=== PATIENT | male | born 1970 | race Caucasian/White ===

== ENCOUNTER → 2021-03-10 | Day surgery (SDC) | payer OTHER ==
[~2021-03-10] VITALS: Ht 170.2 cm; Wt 63.5 kg
[~2021-03-10] MED LIST: BUSPIRONE HCL10 MG PO; NEURONTIN300 MG PO; NORCO 5-325 TA1 EACH PO; ONDANSETRON ODT8 MG PO; PERCOCET 5-3251 EACH PO; TIZANIDINE HCL2 MG PO; TRAZODONE 100M100 MG PO; VOLTAREN **OUT50 MG PO; XARELTO10 MG PO
[2021-03-10 09:08] LABS: HCT 41.3 % (42.0-52.0); HGB 14.1 g/dl (13.2-18.0); MCH 30.1 pg (25.0-31.0); MCHC 34.1 g/dL (32.0-36.0); MCV 88.2 fL (78.0-100.0); MPV 9.9 fL (6.0-9.5); RBC 4.68 M/uL (4.70-6.00); WBC 9.3 K/uL (4.0-10.5)
[2021-03-10 09:22] LABS: ALBUMIN 3.6 g/dL (3.4-5.0); BILIRUBIN - TOTAL 0.3 mg/dL (0.2-1.0); BUN/CREAT RATIO (CALC) 16.5 RATIO; CREATININE 0.97 mg/dL (0.67-1.17); GLOBULIN (CALCULATION) 3.2 g/dL; POTASSIUM 4.1 mmol/L (3.5-5.1); TOTAL PROTEIN 6.8 g/dL (6.4-8.2)
--- NOTE | 2021-03-10 15:04 | NUR ---
[id number] PATIENT UNABLE TO VOID, VERBAL ORDER PER DR. MENDOZA FOR FLOMAX RECEIVED.
--- NOTE | 2021-03-10 15:05 | NUR ---
1445 [address] MENDOZA THAT PATIENT IS ANXIOUS TO GO HOME. STATES HE NEEDS NEEDS A CIGARETE. HAS NOT VOIDED. PER DR. MENDOZA PATIENT CAN GO HOME AND IF HAS NOT VOIDED IN 6 HOURS RETURN TO THE ED.
== END | disposition home or self-care (01) ==
LOC: FAS 08:22
PROVIDERS: Surgery
DX: K40.90 Unilateral inguinal hernia, without obstruction or gangrene, not specified as recurrent (principal); F41.9 Anxiety disorder, unspecified; M19.90 Unspecified osteoarthritis, unspecified site; M71.20 Synovial cyst of popliteal space [Baker], unspecified knee; G56.00 Carpal tunnel syndrome, unspecified upper limb; M54.2 Cervicalgia; G89.29 Other chronic pain; I10 Essential (primary) hypertension; G47.00 Insomnia, unspecified; F17.210 Nicotine dependence, cigarettes, uncomplicated; Z79.899 Other long term (current) drug therapy; Z87.440 Personal history of urinary (tract) infections; Z87.442 Personal history of urinary calculi; Z88.6 Allergy status to analgesic agent
CPT/HCPCS: 36415; 80053; C1781; J0690; J1170; J2250; J2405; J2704; J2710; J3010; J7120